=== PATIENT | female | born 2000 | race African-American/Black ===

== ENCOUNTER 2024-08-01 13:48 | Emergency (ER) | payer MEDICAID ==
[~2024-08-01] VITALS: Ht 170.2 cm; Wt 114.5 kg
[2024-08-01 14:14] LABS: BASO # 0.02 K/mm3 (0.02-0.10); HEMATOCRIT 42.5 % (37.0-47.0); HEMOGLOBIN 13.9 g/dL (12.5-16.0); LYMPH# 2.29 K/mm3 (1.50-4.00); MEAN CELL VOLUME 89 fl (78-100); MEAN CORPUSCULAR HEMOGLOBIN 29 pg (27-31); MEAN CORPUSCULAR HGB CONC 33 g/dL (33-37); MEAN PLATELET VOLUME 9.2 fl (7.4-10.4); MONO # 0.58 K/mm3 (0.20-0.80); NEU # 7.44 K/mm3 (1.40-6.50); PLATELET COUNT 277 K/mm3 (130-400); RED BLOOD COUNT 4.78 M/mm3 (4.10-5.30); RED CELL DISTRIBUTION WIDTH 13.5 % (11.5-14.5); WHITE BLOOD COUNT 10.5 K/mm3 (4.8-10.8)
[2024-08-01 14:22] LABS: ALBUMIN 4.3 g/dL (3.5-5.0)
[2024-08-01 14:24] LABS: CALCIUM 9.4 mg/dL (8.3-10.5)
[2024-08-01 14:25] LABS: TOTAL PROTEIN 7.5 g/dL (6.4-8.3)
[2024-08-01 14:27] LABS: TOTAL BILIRUBIN 0.4 mg/dL (0.2-1.2)
[2024-08-01 14:34] LABS: D-DIMER 0.2 mg/L FEU (0.15-0.50)
[2024-08-01 15:08] VITALS: BP 123/86
== END 2024-08-01 15:08 | disposition home or self-care (01) ==
LOC: ED 13:48
PROVIDERS: Family Medicine
DX: R07.89 Other chest pain (principal)